=== PATIENT | female | born 1960 | race Two or more races ===

== ENCOUNTER 2023-03-08 10:45 | Emergency (ER) | payer OTHER ==
[~2023-03-08] VITALS: Ht 157.5 cm; Wt 78.0 kg
[2023-03-08] MEDS ORDERED: LOSARTAN POTAS100 MG PO (11:15)
[2023-03-08] MEDS ORDERED: LEVOTHYROXINE50 MCG PO (11:15)
[2023-03-08] MEDS ORDERED: PREVACID30 MG (11:16)
[2023-03-08] MEDS ORDERED: LIVALO4 MG (11:16)
[2023-03-08 12:43] LABS: HEMATOCRIT 37.5 % (36.0-45.00); MEAN CELL VOLUME 93.6 fL (80.00-100.00); MEAN CORPUSCULAR HEMOGLOBIN 32.6 pg (27.00-32.0); MEAN CORPUSCULAR HGB CONC 34.8 g/dl (32.0-36.0); PLATELET COUNT 294 K/uL (150-450); RED CELL DISTRIBUTION WIDTH 12.8 % (11.5-14.5)
== END 2023-03-08 16:33 ==
LOC: ER 10:46
PROVIDERS: General Practice
DX: J32.9 Chronic sinusitis, unspecified (principal); B34.9 Viral infection, unspecified; I10 Essential (primary) hypertension; E03.9 Hypothyroidism, unspecified; K21.9 Gastro-esophageal reflux disease without esophagitis; E78.49 Other hyperlipidemia; Z20.822 Contact with and (suspected) exposure to COVID-19